=== PATIENT | male | born 1985 | race American Indian/Alaskan Native ===

== ENCOUNTER 2019-03-25 00:08 | Emergency (ER) | payer OTHER ==
[2019-03-25] MEDS ORDERED: TORADOL ONE (01:14)
[2019-03-25] MEDS ORDERED: ZOFRAN ODT ONE (01:15)
[2019-03-25] MEDS ORDERED: TORADOL IM ONE (01:20)
[2019-03-25] MEDS ORDERED: ZOFRAN ODT PO ONE (01:22)
[2019-03-25 01:50] LABS: Basophils # (Auto) 0.1 K/mm3 (0.0-0.1); Basophils % (Auto) 0.5 % (0.0-1.8); Eosinophils # (Auto) 0.1 K/mm3 (0.0-0.4); Eosinophils % (Auto) 0.5 % (0.0-4.3); Hematocrit 45.1 % (35.5-45.6); Lymphocytes # (Auto) 1.8 K/mm3 (1.2-5.4); Mean Corpuscular HGB Conc 33 % (32-34); Mean Corpuscular Volume 82 fl (84-94); Monocytes # (Auto) 0.9 K/mm3 (0.0-0.8); Monocytes % (Auto) 7.4 % (0.0-7.3); Platelet Count 186 K/mm3 (140-440); Red Blood Count 5.47 M/mm3 (3.65-5.03)
[2019-03-25 02:15] VITALS: BP 132/79
--- NOTE | 2019-03-25 02:26 | Cat Scan Report ---
CT ABDOMEN AND PELVIS WITHOUT IV CONTRAST INDICATION: Stabbing right-sided abdominal pain.. COMPARISON: None available. TECHNIQUE: All CT scans at this facility use dose modulation, automated exposure control, iterative reconstructi on or weight based dosing, when appropriate, to reduce radiation dose to as low as reasonably achieva ble. FINDINGS: Lung Bases: Clear. Skeletal System: No acute abnormality. ABDOMEN: Liver: Normal. Gallbladder: Normal. Bile Ducts: Normal. Pancreas: Normal. Spleen: Normal. Adrenals: Normal. Right Kidney: There is very mild right hydroureteronephrosis. No intrarenal stones are seen. Left Kidney: Normal. Stomach and Bowel: Stomach is distended with fluid. Small bowel is unremarkable. Lymph Nodes: No significant adenopathy. Aorta: No significant abnormality. Additional Findings: None. PELVIS: Colon: Normal . Urinary Bladder and Distal Ureters: There is a 2 mm stone in the distal right ureter (axial image 164 ). The bladder is decompressed, limiting its evaluation. Appendix: Normal. Lymph Nodes: No significant adenopathy. Additional Findings: None. IMPRESSION: 1. 2 mm distal right ureteral stone results in mild right hydroureteronephrosis. No intrarenal stone s. 2. Stomach is distended with fluid but otherwise unremarkable. There are no dilated loops of small b owel. Signer Name: Amari Bourne MD Signed: 03/25/2019 2:21 AM Workstation Name: [id number]
[2019-03-25 02:36] LABS: Bilirubin,Urine NEG (Negative); Blood,Urine SM (Negative); Color,Urine Yellow (Yellow); Mucus,Urine FEW /HPF; Urobilinogen,Urine < 2.0 mg/dL (<2.0)
--- NOTE | 2019-03-25 02:46 | Emergency Department Report ---
ED Asthma HPI - General Chief Complaint: Abdominal Pain Stated Complaint: RIGHT SIDE PAIN Time Seen by Provider: 03/25/19 02:11 Source: patient Mode of arrival: Ambulatory Limitations: No Limitations - Related Data Allergies Allergy/AdvReac Type Severity Reaction Status Date / Time No Known Allergies Allergy Verified 03/25/19 01:29 ED Review of Systems ROS: Stated complaint: RIGHT SIDE PAIN Other details as noted in HPI ED Past Medical Hx - Past Medical History Previous Medical History?: No - Surgical History Past Surgical History?: No - Social History Smoking Status: Never Smoker Substance Use Type: None ED Physical Exam - General Limitations: No Limitations ED Course Vital Signs 03/25/19 03/25/19 01:17 02:13 Temperature 98.0 F 98.2 F Pulse Rate 85 65 Respiratory 18 16 Rate Blood Pressure 152/75 Blood Pressure 132/79 [Left] O2 Sat by Pulse 100 99 Oximetry ED Medical Decision Making - Lab Data Result diagrams: 03/25/19 01:34 Critical care attestation.: If time is entered above; I have spent that time in minutes in the direct care of this critically ill patient, excluding procedure time. ED Disposition Condition: Stable Referrals: MADALYN GOODSON MD [Primary Care Provider] - 3-5 Days
--- NOTE | 2019-03-25 02:52 | Emergency Department Report ---
ED Abdominal Pain HPI - General Chief Complaint: Abdominal Pain Stated Complaint: RIGHT SIDE PAIN Time Seen by Provider: 03/25/19 02:11 Source: patient Mode of arrival: Ambulatory Limitations: No Limitations - History of Present Illness Initial Comments: Patient is a 33-year-old male who is presenting with several hours of right-sided flank pain. Patient states that this occurred suddenly tonight. He states it is sticking throbbing pain is 8 out of 10 in severity. He denies nausea vomiting fevers chills cough, congestion or hematuria at this time. Severity scale (0 -10): 8 - Related Data Previous Rx's Medication Instructions Recorded Last Taken Type Ibuprofen [Motrin 800 MG tab] 800 mg PO Q8HR PRN #10 tablet 03/25/19 Unknown Rx Tamsulosin [Flomax] 0.4 mg PO QDAY #7 cap 03/25/19 Unknown Rx traMADol [Ultram] 50 mg PO Q6HR PRN #12 tablet 03/25/19 Unknown Rx Allergies Allergy/AdvReac Type Severity Reaction Status Date / Time No Known Allergies Allergy Verified 03/25/19 01:29 ED Review of Systems ROS: Stated complaint: RIGHT SIDE PAIN Other details as noted in HPI Comment: All other systems reviewed and negative ED Past Medical Hx - Past Medical History Previous Medical History?: No - Surgical History Past Surgical History?: No - Social History Smoking Status: Never Smoker Substance Use Type: None - Medications Home Medications: Home Medications Medication Instructions Recorded Confirmed Last Taken Type Ibuprofen [Motrin 800 MG tab] 800 mg PO Q8HR PRN #10 tablet 03/25/19 Unknown Rx Tamsulosin [Flomax] 0.4 mg PO QDAY #7 cap 03/25/19 Unknown Rx traMADol [Ultram] 50 mg PO Q6HR PRN #12 tablet 03/25/19 Unknown Rx ED Physical Exam - General Limitations: No Limitations General appearance: alert, in no apparent distress - Head Head exam: Present: atraumatic, normocephalic - Eye Eye exam: Present: normal appearance - ENT ENT exam: Present: mucous membranes moist - Neck Neck exam: Present: normal inspection - Respiratory Respiratory exam: Present: normal lung sounds bilaterally. Absent: respiratory distress, wheezes, rales, rhonchi - Cardiovascular Cardiovascular Exam: Present: regular rate, normal rhythm. Absent: systolic murmur, diastolic murmur, rubs, gallop - GI/Abdominal GI/Abdominal exam: Present: soft, tenderness (right flank), normal bowel sounds. Absent: distended, guarding, rebound, rigid - Rectal Rectal exam: Present: deferred - Extremities Exam Extremities exam: Present: normal inspection - Back Exam Back exam: Present: normal inspection - Neurological Exam Neurological exam: Present: alert, oriented X3 - Psychiatric Psychiatric exam: Present: normal affect, normal mood - Skin Skin exam: Present: warm, dry, intact, normal color. Absent: rash ED Course Vital Signs 03/25/19 03/25/19 01:17 02:13 Temperature 98.0 F 98.2 F Pulse Rate 85 65 Respiratory 18 16 Rate Blood Pressure 152/75 Blood Pressure 132/79 [Left] O2 Sat by Pulse 100 99 Oximetry ED Medical Decision Making - Lab Data Result diagrams: 03/25/19 01:34 Lab Results 03/25/19 03/25/19 Range/Units 01:34 02:03 WBC 12.5 H (4.5-11.0) K/mm3 RBC 5.47 H (3.65-5.03) M/mm3 Hgb 15.0 (11.8-15.2) gm/dl Hct 45.1 (35.5-45.6) % MCV 82 L (84-94) fl MCH 28 (28-32) pg MCHC 33 (32-34) % RDW 14.0 (13.2-15.2) % Plt Count 186 (140-440) K/mm3 Lymph % (Auto) 14.0 (13.4-35.0) % [place] % (Auto) 7.4 H (0.0-7.3) % Eos % (Auto) 0.5 (0.0-4.3) % Baso % (Auto) 0.5 (0.0-1.8) % Lymph # 1.8 (1.2-5.4) K/mm3 [place] # 0.9 H (0.0-0.8) K/mm3 Eos # 0.1 (0.0-0.4) K/mm3 Baso # 0.1 (0.0-0.1) K/mm3 Seg Neutrophils % 77.6 H (40.0-70.0) % Seg Neutrophils # 9.7 H (1.8-7.7) K/mm3 Urine Color Yellow (Yellow) Urine Turbidity Slightly-cloudy (Clear) Urine pH 9.0 H (5.0-7.0) Ur Specific [place] 1.019 (1.003-1.030) Urine Protein 100 mg/dl (Negative) mg/dL Urine Glucose (UA) Neg (Negative) mg/dL Urine Ketones Tr (Negative) mg/dL Urine Blood Sm (Negative) Urine Nitrite Neg (Negative) Urine Bilirubin Neg (Negative) Urine Urobilinogen < 2.0 (<2.0) mg/dL Ur Leukocyte Esterase Neg (Negative) Urine WBC (Auto) 4.0 (0.0-6.0) /HPF Urine RBC (Auto) 91.0 (0.0-6.0) /HPF Urine Mucus Few /HPF - Radiology Data CT ABDOMEN AND PELVIS WITHOUT IV CONTRAST INDICATION: Stabbing right-sided abdominal pain.. COMPARISON: None available. TECHNIQUE: All CT scans at this facility use dose modulation, automated exposure control, iterative reconstruction or weight based dosing, when appropriate, to reduce radiation dose to as low as reasonably achievable. FINDINGS: Lung Bases: Clear. Skeletal System: No acute abnormality. ABDOMEN: Liver: Normal. Gallbladder: Normal. Bile Ducts: Normal. Pancreas: Normal. Spleen: Normal. Adrenals: Normal. Right Kidney: There is very mild right hydroureteronephrosis. No intrarenal stones are seen. Left Kidney: Normal. Stomach and Bowel: Stomach is distended with fluid. Small bowel is unremarkable. Lymph Nodes: No significant adenopathy. Aorta: No significant abnormality. Additional Findings: None. PELVIS: Colon: Normal . Urinary Bladder and Distal Ureters: There is a 2 mm stone in the distal right ureter (axial image 164). The bladder is decompressed, limiting its evaluation. Appendix: Normal. Lymph Nodes: No significant adenopathy. Additional Findings: None. IMPRESSION: 1. 2 mm distal right ureteral stone results in mild right hydroureteronephrosis. No intrarenal stones. 2. Stomach is distended with fluid but otherwise unremarkable. There are no dilated loops of small bowel. Signer Name: Amari Bourne MD Signed: 03/25/2019 2:21 AM - Medical Decision Making Patient's pain was controlled with Toradol. Does have evidence of a mild hy dronephrosis secondary to an obstructive uropathy. Patient discharged home with urology follow-up as needed. Critical care attestation.: If time is entered above; I have spent that time in minutes in the direct care of this critically ill patient, excluding procedure time. ED Disposition Clinical Impression: Kidney stone Hydronephrosis Qualifiers: Hydronephrosis type: with ureteral calculous obstruction Qualified Code(s): N13.2 - Hydronephrosis with renal and ureteral calculous obstruction Disposition: DC-01 TO HOME OR SELFCARE Is pt being admited?: No Does the pt Need Aspirin: No Condition: Stable Instructions: Kidney Stones (ED) Referrals: ITA GANN MD [Staff Physician] - as needed Time of Disposition: 02:52
[2019-03-25 02:53] LABS: BUN/Creatinine Ratio 12; Blood Urea Nitrogen 17 mg/dL (9-20); Calcium 9.9 mg/dL (8.4-10.2); Hemolysis Index 29
== END 2019-03-25 03:15 | disposition home or self-care (01) ==
LOC: ED 00:08
DX: N13.2 Hydronephrosis with renal and ureteral calculous obstruction (principal)
CPT/HCPCS: 36415; 74176; 80048; 81001; 85025; 96372; 99284; J1885; Q0162